=== PATIENT | male | born 1985 | race African-American/Black ===

== ENCOUNTER 2022-10-17 10:16 | Emergency (ER) | payer OTHER, SELFPAY ==
--- NOTE | ~2022-10-17 | CT_ITS ---
EXAMINATION: CT chst ab lisandro siegel w DATE: 10/17/2022 12:53 INDICATION: Chest, abdominal, and back pain TECHNIQUE: Transaxial computed tomographic images of the chest, abdomen, pelvis, thoracic, and lumbar spine were obtained after the administration of 100 cc of Omnipaque 350 intravenous contrast. The do se-length product (DLP) was 1667.52 mGy-cm. Automated exposure control and iterative reconstruction t echnique were employed. COMPARISON: None FINDINGS: CHEST CT: Minimal dependent atelectasis is present in the lung bases. The heart size is normal. The lungs are f ree of focal airspace opacities. No pleural effusion or pneumothorax. There are no pathologically enl arged thoracic lymph nodes. ABDOMEN/PELVIS CT: The liver, spleen, pancreas, gallbladder, and adrenal glands are normal. The kidneys are unremarkable . No pathologically enlarged abdominal or pelvic lymph nodes are identified. No free intraperitoneal gas or evidence of bowel obstruction. THORACIC SPINE CT: No dislocation or subluxation. There is subtle loss of mid vertebral body height a t T4. The vertebral body heights, alignment, and intervertebral disc spaces are otherwise normal. The paravertebral soft tissues are unremarkable. LUMBAR SPINE CT: No fracture, dislocation, or subluxation. The vertebral body heights, alignment, and intervertebral disc spaces are normal. The paravertebral soft tissues are unremarkable. IMPRESSION: 1. No acute findings of the chest, abdomen, or pelvis. 2. Age-indeterminate, subtle compression deformity of the T4 vertebral body. 3. Normal lumbar spine. Reviewed, dictated and finalized at location B.
--- NOTE | ~2022-10-17 | CT_ITS ---
EXAMINATION: CT brain wo con INDICATION: Head injury COMPARISON: None TECHNIQUE: Standard unenhanced head CT. The dose-length product (DLP) was 681.00 mGy-cm. The mA was a djusted according to patient size. Iterative reconstruction technique was employed. FINDINGS: There is no intracranial hemorrhage, acute infarction, or abnormal mass lesion. The ventric les are normal. There is no abnormal mass effect or midline shift. The oropeza-white matter differentiat ion is normal. The basal cisterns are patent. The orbits are normal. The paranasal sinuses, mastoids and calvarium are normal. IMPRESSION: 1. No acute intracranial abnormality. Reviewed, dictated and finalized at location B.
--- NOTE | ~2022-10-17 | CT_ITS ---
Noncontrast CT scan of the cervical spine Technique: Multiple contiguous axial [address] images of the cervical spine were obtained and rec onstructed in 2D sagittal and coronal planes on the acquisition scanner. Dose reduction technique was used on this scan by utilizing automated exposure control, adjustment of the mA and/or kV according to patient size. The dose-length product (DLP) was 481.56 mGy-cm. Clinical History: Pain Findings: No fractures or dislocations. Unremarkable visualized bony structures. The intervertebral disc spaces are preserved. No prevertebral soft tissue swelling. Impression: No fracture or subluxation of the cervical spine. Reviewed, dictated and finalized at location . Impression: No fracture or subluxation of the cervical spine.
[2022-10-17 10:24] VITALS: BP 132/79; PULSE 73; RESP 18; TEMP 36.5; O2SAT 97
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
[2022-10-17 12:13] LABS: Basophils Absolute Auto 0.1 K/mm3 (0.0-0.1); Basophils Percent Auto 1.2 % (0.2-1.2); Eosinophils Absolute Auto 0.2 K/mm3 (0-0.3); Eosinophils Percent Auto 3.1 % (0-4.4); Hematocrit 41.4 % (42.0-52.0); Hemoglobin 13.1 g/dL (14.0-18.0); Immature Granulocyte Absolute 0.01 K/mm3 (0.00-0.031); Immature Granulocyte Percent A 0.2 % (0-0.5); Lymphocytes Absolute Auto 1.56 K/mm3 (0.9-3.2); Lymphocytes Percent Auto 32.4 % (18.3-44.2); Mean Corpuscular HGB Conc 31.6 g/dl (32-36); Mean Corpuscular Hemoglobin 26.2 pg (26-34); Mean Corpuscular Volume 82.8 fl (80-100); Monocytes Absolute Auto 0.4 K/mm3 (0.1-0.6); Monocytes Percent Auto 9.1 % (2.6-8.5); Neutrophils Absolute Auto 2.6 K/mm3 (1.3-6.7); Platelet Count Result 231 k/mm3 (150-375); Red Cell Distribution Width 13.2 % (11.5-14.5); White Blood Count 4.8 K/mm3 (4.5-10.0)
[2022-10-17 12:25] LABS: INR 1.1; Prothrombin Time 14.6 Seconds (11.1-14.7)
[2022-10-17 12:26] LABS: Partial Thromboplastin Time 29.2 SECONDS (22.3-36.8)
[2022-10-17 12:32] LABS: Alanine Aminotransferase 39 U/L (6-50); Albumin Level 4.5 g/dL (3.5-5.1); Alkaline Phosphatase 61 U/L (38-126); Anion Gap 7 mmol/L (8-16); Aspartate Amino Transferase 46 U/L (17-59); Bilirubin,Total 0.5 mg/dL (0.2-1.3); Blood Urea Nitrogen 10 mg/dL (9-20); Calcium 8.8 mg/dL (8.4-10.2); Carbon Dioxide 26 mmol/L (22-30); Chloride 105 mmol/L (98-107); Estimated CRCL calculation 155 ml/min; Estimated Glomerular Filt Rate > 60; Glucose 100 mg/dL (65-110); Potassium 4.2 mmol/L (3.4-5.0); Sodium 138 mmol/L (137-145)
[2022-10-17] MEDS: ONDANSETRON INJ 4 MG/2 ML VIAL IV PUSH (12:56)
[2022-10-17] MEDS: MORPHINE SULFATE (*CRX) 4 MG/ML INJ IV PUSH (12:56)
[2022-10-17 14:57] VITALS: BP 139/70; PULSE 71; RESP 16; TEMP 36.8; O2SAT 99
== END 2022-10-17 14:58 | disposition home or self-care (01) ==
PROVIDERS: Emergency Provider Physician Assistant
DX: S22.040A Wedge compression fracture of fourth thoracic vertebra, initial encounter for closed fracture (principal); V74.6XXA Passenger on bus injured in collision with heavy transport vehicle or bus in traffic accident, initial encounter
CPT/HCPCS: 36415; 70450; 71260; 72125; 72129; 72132; 74177; 80053; 85025; 85610; 85730; 96374; 96375; 99284; J2270; J2405; Q9967